=== PATIENT | male | born 1965 | race African-American/Black ===

== ENCOUNTER 2018-07-07 23:48 | Emergency (ER) | payer OTHER ==
[~2018-07-07] VITALS: Ht 167.6 cm; Wt 73.0 kg
[~2018-07-07 23:48] MED LIST: ABILIFY
[2018-07-08 02:47] VITALS: BP 120/73
== END 2018-07-08 02:51 | disposition home or self-care (01) ==
LOC: ER 23:48
DX: S86.911A Strain of unspecified muscle(s) and tendon(s) at lower leg level, right leg, initial encounter (principal); F31.9 Bipolar disorder, unspecified; D64.9 Anemia, unspecified; F17.200 Nicotine dependence, unspecified, uncomplicated; X50.1XXA Overexertion from prolonged static or awkward postures, initial encounter; Y93.01 Activity, walking, marching and hiking; Y92.89 Other specified places as the place of occurrence of the external cause; Y99.8 Other external cause status
CPT/HCPCS: 73562; 99283; L1830

== ENCOUNTER 2018-07-08 08:07 | Emergency (ER) | payer OTHER ==
[~2018-07-08] VITALS: Ht 162.6 cm; Wt 52.0 kg
[2018-07-08 08:40] VITALS: BP 130/72
== END 2018-07-08 09:14 | disposition left against medical advice (07) ==
LOC: ER 08:07
DX: Z53.21 Procedure and treatment not carried out due to patient leaving prior to being seen by health care provider (principal)

== ENCOUNTER 2018-08-02 19:26 | Emergency (ER) | payer OTHER ==
[~2018-08-02] VITALS: Ht 160 cm; Wt 56.0 kg
[2018-08-02 22:02] VITALS: BP 115/67
== END 2018-08-02 22:02 | disposition home or self-care (01) ==
LOC: ER 19:26
DX: F31.9 Bipolar disorder, unspecified (principal); D64.9 Anemia, unspecified; F17.200 Nicotine dependence, unspecified, uncomplicated; F12.10 Cannabis abuse, uncomplicated
CPT/HCPCS: 99282; 99283

== ENCOUNTER 2022-01-17 10:20 | Emergency (ER) | payer OTHER ==
[~2022-01-17] VITALS: Ht 157.5 cm; Wt 49.0 kg
[2022-01-17] MEDS ORDERED: IBUPROFEN 600MG TABLET PO STA (13:37)
[2022-01-17] MEDS ORDERED: NAPR-681 PO (15:25)
[2022-01-17 15:45] VITALS: BP 141/96
== END 2022-01-17 15:47 | disposition home or self-care (01) ==
LOC: ER 10:20
DX: M25.512 Pain in left shoulder (principal); M54.50 Low back pain, unspecified; F12.10 Cannabis abuse, uncomplicated; J45.909 Unspecified asthma, uncomplicated; Z86.59 Personal history of other mental and behavioral disorders; W18.30XA Fall on same level, unspecified, initial encounter; Y04.0XXA Assault by unarmed brawl or fight, initial encounter; Y93.89 Activity, other specified; Y92.89 Other specified places as the place of occurrence of the external cause; Y99.8 Other external cause status
CPT/HCPCS: 72110; 73030; 99284

== ENCOUNTER 2022-02-07 09:58 | Emergency (ER) | payer MEDICAID, OTHER ==
[~2022-02-07] VITALS: Ht 157.5 cm; Wt 50.0 kg
[~2022-02-07 09:58] MED LIST changes: +NAPR-681 PO
[2022-02-07 10:09] VITALS: BP 94/73
[2022-02-07] MEDS ORDERED: HC A30CR2 RC (14:52)
== END 2022-02-07 15:19 | disposition home or self-care (01) ==
LOC: ER 10:27
DX: K64.9 Unspecified hemorrhoids (principal); J45.909 Unspecified asthma, uncomplicated; F12.10 Cannabis abuse, uncomplicated
CPT/HCPCS: 82270; 99283

== ENCOUNTER 2022-08-01 14:14 | Emergency (ER) | payer MEDICAID, OTHER ==
[~2022-08-01] VITALS: Ht 152.4 cm; Wt 52.0 kg
[~2022-08-01 14:14] MED LIST changes: +HC A30CR2 RC
[2022-08-01] MEDS ORDERED: BO1 TP (16:21)
[2022-08-01] MEDS ORDERED: BACITRACIN ZINC OINT UDPKT TOP ONE (16:30)
[2022-08-01] MEDS ORDERED: TETANUS, DIPHTHERIA, PERTUSSIS VAC/PF 0.5ML (>10YR OLD) IM ONE (16:30)
[2022-08-01 16:46] VITALS: BP 106/58
== END 2022-08-01 16:47 | disposition home or self-care (01) ==
LOC: ER 14:14
DX: T23.011A Burn of unspecified degree of right thumb (nail), initial encounter (principal); T79.9XXA Unspecified early complication of trauma, initial encounter; F12.10 Cannabis abuse, uncomplicated; X08.8XXA Exposure to other specified smoke, fire and flames, initial encounter; Y93.89 Activity, other specified; Y92.89 Other specified places as the place of occurrence of the external cause; Y99.8 Other external cause status
CPT/HCPCS: 90471; 90715; 99283; Z7610

== ENCOUNTER 2023-05-23 11:51 | Emergency (ER) | payer OTHER ==
[~2023-05-23] VITALS: Ht 160 cm; Wt 55.0 kg
[~2023-05-23 11:51] MED LIST changes: +BO1 TP
[2023-05-23 12:06] VITALS: O2SAT 100
[2023-05-23] MEDS: BACITRACIN 14GM TUBE TOP SCH (12:30)
[2023-05-23] MEDS ORDERED: BACITRACIN 14GM TUBE TOP ONE (12:30)
[2023-05-23 13:06] VITALS: BP 130/80; PULSE 75; RESP 16; TEMP 98.1
== END 2023-05-23 13:07 | disposition home or self-care (01) ==
LOC: ER 11:51
DX: S60.311A Abrasion of right thumb, initial encounter (principal); X58.XXXA Exposure to other specified factors, initial encounter; Y93.89 Activity, other specified; Y92.89 Other specified places as the place of occurrence of the external cause; Y99.8 Other external cause status
CPT/HCPCS: 99282

== ENCOUNTER 2023-10-14 09:34 | Emergency (ER) | payer OTHER ==
[~2023-10-14] VITALS: Ht 160 cm; Wt 65.0 kg
[2023-10-14 09:45] VITALS: BP 122/69; PULSE 63; RESP 20; TEMP 98.2; O2SAT 99
[2023-10-14] MEDS: ACETAMINOPHEN 325MG TABLET PO NR (10:00)
== END 2023-10-14 17:05 | disposition left against medical advice (07) ==
LOC: ER 10:44
DX: S02.40CA Maxillary fracture, right side, initial encounter for closed fracture (principal); J45.909 Unspecified asthma, uncomplicated; F12.90 Cannabis use, unspecified, uncomplicated; Y08.89XA Assault by other specified means, initial encounter; Y93.89 Activity, other specified; Y92.89 Other specified places as the place of occurrence of the external cause; Y99.8 Other external cause status
CPT/HCPCS: 70486; 99291

== ENCOUNTER 2024-03-29 17:03 | Emergency (ER) | payer OTHER ==
[~2024-03-29] VITALS: Ht 167.6 cm; Wt 60.0 kg
[2024-03-29 17:45] VITALS: O2SAT 97
[2024-03-29] MEDS: LIDOCAINE HCL/EPINEPHRINE 1%-EPI 1:100,000 20ML VIAL INFIL ONE (19:39)
[2024-03-29 20:45] VITALS: BP 101/77; PULSE 71; RESP 18; TEMP 36.89184; O2SAT 100
== END 2024-03-29 21:00 | disposition home or self-care (01) ==
LOC: ER 17:03
DX: S01.81XA Laceration without foreign body of other part of head, initial encounter (principal); F12.90 Cannabis use, unspecified, uncomplicated; J45.909 Unspecified asthma, uncomplicated; Z79.899 Other long term (current) drug therapy; X58.XXXA Exposure to other specified factors, initial encounter; Y93.89 Activity, other specified; Y92.89 Other specified places as the place of occurrence of the external cause; Y99.8 Other external cause status
CPT/HCPCS: 70450; 12013; 99284; J3490; Z7610 ×3

== ENCOUNTER 2024-12-15 09:58 | Emergency (ER) | payer OTHER ==
[~2024-12-15] VITALS: Ht 157.5 cm; Wt 52.2 kg
[2024-12-15 10:34] VITALS: O2SAT 100
[2024-12-15] MEDS: IBUPROFEN 600MG TABLET PO ONE (12:48)
[2024-12-15] MEDS ORDERED: CEPH500T MT (14:19)
[2024-12-15] MEDS ORDERED: SULF1TAB48 MT (14:19)
[2024-12-15] MEDS ORDERED: IBUP-1455 MT (14:19)
[2024-12-15] MEDS ORDERED: BO1 TP (14:19)
[2024-12-15 15:13] VITALS: BP 133/58; PULSE 89; RESP 16; TEMP 36.7; O2SAT 100
[2024-12-15] MEDS: BACITRACIN ZINC OINT UDPKT TOP ONE (15:15)
== END 2024-12-15 15:15 | disposition home or self-care (01) ==
LOC: ER 09:58
DX: S09.8XXA Other specified injuries of head, initial encounter (principal); L03.012 Cellulitis of left finger; M79.672 Pain in left foot; M25.561 Pain in right knee; F12.90 Cannabis use, unspecified, uncomplicated; F10.90 Alcohol use, unspecified, uncomplicated; J45.909 Unspecified asthma, uncomplicated; Z87.820 Personal history of traumatic brain injury; Y04.0XXA Assault by unarmed brawl or fight, initial encounter; Y93.89 Activity, other specified; Y92.410 Unspecified street and highway as the place of occurrence of the external cause; Y99.8 Other external cause status; Y90.9 Presence of alcohol in blood, level not specified
CPT/HCPCS: 73130; 73562; 73610; 99284